=== PATIENT | female | born 1965 | race American Indian/Alaskan Native ===

== ENCOUNTER 2017-08-18 12:06 | Emergency (ER) | payer MEDICAID ==
[~2017-08-18] VITALS: Ht 165.1 cm; Wt 92.0 kg
[~2017-08-18 12:06] MED LIST: ENOX40SY4 SQ; HYDR-3237 PO; HYDR-3240 PO; IBUP-1223 PO; METH2.5T PO; METH500T7 PO; PRED5TAB PO
[2017-08-18 12:10] VITALS: BP 130/90
== END 2017-08-18 14:43 | disposition home or self-care (01) ==
LOC: ED 14:00
DX: M13.841 Other specified arthritis, right hand (principal); L40.9 Psoriasis, unspecified
CPT/HCPCS: 99284